=== PATIENT | male | born 1985 | race Caucasian/White ===

== ENCOUNTER 2025-01-05 16:42 | Emergency (ER) | payer MEDICAID ==
[~2025-01-05] VITALS: Ht 162.6 cm; Wt 77.3 kg
[2025-01-05 16:53] VITALS: TEMP 98.6
[2025-01-05] MEDS: PROPARACAINE HCL 0.5% 15 ML OPHTHALMIC SOLUTION OU ONE (21:27)
[2025-01-05] MEDS: FLUORESCEIN SODIUM 1 MG STRIP OU ONE (21:28)
[2025-01-05] MEDS: ERYTHROMYCIN 0.5% 3.5 GM TUBE OPHTHALMIC OINTMENT OU ONE (22:25)
[2025-01-05 22:46] VITALS: BP 117/63; PULSE 78; RESP 18; O2SAT 99
== END 2025-01-05 23:19 | disposition home or self-care (01) ==
LOC: EMS 16:42
DX: T15.92XA Foreign body on external eye, part unspecified, left eye, initial encounter (principal); T15.91XA Foreign body on external eye, part unspecified, right eye, initial encounter; F17.210 Nicotine dependence, cigarettes, uncomplicated; W44.9XXA Unspecified foreign body entering into or through a natural orifice, initial encounter; Y93.89 Activity, other specified; Y92.89 Other specified places as the place of occurrence of the external cause; Y99.8 Other external cause status
CPT/HCPCS: 99283